=== PATIENT | female | born 1990 ===

== ENCOUNTER 2018-09-18 04:00 | Inpatient (IN) ==
[2018-09-18] MEDS ORDERED: Metoclopramide 10 MG/2 ML VIAL IVP PRN (04:21)
[2018-09-18] MEDS ORDERED: Naloxone 0.4 MG/ML INJ IVP PRN ×3 (04:21→15:43)
[2018-09-18] MEDS ORDERED: Famotidine 20 MG/2 ML VIAL IVP PRN (04:21)
[2018-09-18] MEDS ORDERED: *HR* Nalbuphine 10 MG/ML AMPUL IVP PRN (04:21)
[2018-09-18] MEDS ORDERED: miSOPROStol 25 MCG TABLET VG PRN (04:25)
[2018-09-18] MEDS ORDERED: Ringers Solution, Lactated 1,000 ML IVC SCH (04:30)
[2018-09-18 04:49] LABS: Basophils % 0.1 %; Eosinophils % 0.3 %; Hematocrit 37.6 % (35.3-44.9); Hemoglobin 12.6 g/dL (11.5-15.4); Immature Granulocytes % 0.6 % (0-4); Lymphocytes # 2.3 K/mcL (0.6-4.6); Lymphocytes % 20.5 %; Mean Corpuscular HGB Conc 33.5 g/dL (31.6-35.5); Mean Corpuscular Hemoglobin 28.6 pg (28.0-33.3); Mean Corpuscular Volume 85.5 fL (83.0-100.0); Mean Platelet Volume 13.8 fL (9.4-12.4); Monocytes # 0.9 K/mcL (0.0-1.3); Platelet Count 140 K/mcL (140-400); Red Cell Distribution Width 12.8 % (11.5-14.5); Segmented Neutrophils % 70.5 %
[2018-09-18 04:58] LABS: Amphetamine Screen,Urine Negative ng/mL (Cutoff=1000); Barbiturate Screen,Urine Negative ng/mL (Cutoff=200); Benzodiazepines Screen,Urine Negative ng/mL (Cutoff=200); Cannabinoid Screen,Urine Negative ng/mL (Cutoff = 50); Cocaine Screen,Urine Negative ng/mL (Cutoff= 300); Opiate Screen,Urine Negative ng/mL (Cutoff=300); Phencyclidine Screen,Urine Negative ng/mL (Cutoff=25)
[2018-09-18] MEDS ORDERED: Oxytocin 20 units/ LR 1000 mL 20 UNIT/1,000 ML BAG IVC SCH ×2 (05:30→15:43)
--- NOTE | 2018-09-18 07:57 | Anesthesia Evaluation PreOp ---
Addendum entered and electronically signed by Tonny Lauren CRNA 09/18/18 11:59: Non-reassuring FHTs developed after epidural placement prompting need for stat . Patient states that epidural is providing adequate pain relief so explained to patient that plan A for anesthetic management will be epidural, plan B GETA. Patient verbalizes understanding. Patient's ASA status should be corrected to III E for BMI > 40. Original Note: Date of Encounter: 09/18/18 Time of Encounter: 07:54 - Past History Planned Operation: JUJU Cardiac History: Denies any Significant Hx Pulmonary History: Former smoker, Smoking Cessation (quit at the end of 2016) HAND FABRIC CUTTER History: Denies Any Significant HX Other Medical History: Denies Any Significant HX Alcohol Use: none Drug use: none Medications and Allergies Allergy/AdvReac Type Severity Reaction Status Date / Time No Known Allergies Allergy Verified 09/18/18 05:20 - Meds/Allergy Pre-op Review Medications Reviewed: Yes Allergies Reviewed: Yes Beta Blockers on Current Med List: No Anesthesia Results - Labs 09/18/18 04:30 Anesthesia Exam 131/84, HR 69, RR 14 O2 Sat Height 1.7 m Height 1.7 m Weight 127.006 kg Weight 127.006 kg NPO (# of Hours): >8hrs Pain Scale: 4 Pain Scale Used: Numeric (1 - 10) - HEENT Pupil (Motor): Pupils equal Mallampati: II Teeth: Normal Oral Opening: Greater than 3 - HAND FABRIC CUTTER LOC: Oriented HAND FABRIC CUTTER Motor: Normal RUE, Normal LUE, Normal RLE, Normal LLE, Normal Face HAND FABRIC CUTTER Sensory: Normal: RUE, LUE, RLE, LLE, Face - Cardiac Rhythm: Regular Murmur: None - Pulmonary Breath Sounds: bilateral Clear Respiratory Effort: Symmetrical Anesthesia Assess/Plan ASA Score: 2 Modified [place] Scale for Level of Consciousness: Cooperative, oriented, and tranquil Anesthetic Plan: Regional Autologous Blood: No Monitoring Plan: Standard Monitors Recovery Plan: Other
[2018-09-18] MEDS ORDERED: Bupivacaine-MPF 0.25% 10 ML VIAL EP ONE (08:04)
[2018-09-18] MEDS ORDERED: *HR* FentaNYL (PF) 100 MCG/2 ML VIAL EP ONE (08:04)
[2018-09-18] MEDS ORDERED: Lidocaine -MPF 1% 5 ML AMPUL ONE (08:07)
[2018-09-18] MEDS ORDERED: Bupivacaine-MPF 0.25% 10 ML VIAL ONE (08:07)
[2018-09-18] MEDS ORDERED: *HR* FentaNYL (PF) 100 MCG/2 ML VIAL ONE (08:07)
[2018-09-18] MEDS ORDERED: Epidural Premix (fent/bupiv) 110 ML EP SCH (08:15)
--- NOTE | 2018-09-18 08:38 | OB/GYN History & Physical ---
Date of Encounter: 09/18/18 Time of Encounter: 08:36 Assessment and Plan (1) 40 weeks gestation of Current visit: Yes Status: Acute patient's pressures have been normal to mild, tox labs drawn as baseline, pitocin started for IOL, will AROM with advanced dilation, ok for epidural when she desires, anticipate History of Present Illness HPI: Ms. Valadez is a 27 year old female @ 40+5 weeks who presents to L&D for IOL. She does not report LOF, VB or ctxs, feels god FM, A+, GBS neg. Past Med Surg Social Fam HX - Past Medical History Medical history: no medical history Psychiatric history: no psych history - Past Surgical History Additional surgical history: mole removal - Social History Smoking Status: Former smoker Smokeless Tobacco Status: No Alcohol use: none Drug use: none - Family History Mother Adopted: No Family Member Ethnicity: Non- Living Status: Still Living Hx Family Cardiac Disorders: Yes Hx Family Respiratory Disorders: No Hx Family Cancer: No Hx Family GI Disorders: No Hx Family Genitourinary Disorders: No Hx Family Endocrine Disorder: No Hx Family Musculoskeletal Disorders: No Hx Family Neuromuscular Disorders: No Hx Family Neurologic Disorders: No Hx Family HEENT Disorders: No Hx Family Autoimmune Disorders: No Hx Family Reproductive Disorders: No Hx Family Psychosocial Disorders: No Hx Family Medical Disorders: Yes (graves disease) Obstetrical History - Pregnancies : 2 Para: 1 Medications and Allergies Allergy/AdvReac Type Severity Reaction Status Date / Time No Known Allergies Allergy Verified 09/18/18 05:20 Review of System OB All systems PM: reviewed and no additional remarkable complaints except as stated Exam - Constitutional Constitutional: well nourished - HEENT HEENT: PERRL - Neck Neck exam: full ROM - Cervix Dilation: 3 Results Result Diagrams: 09/18/18 04:30 Abnormal lab results WBC 11.3 K/mcL (4.3-11.1) H 09/18/18 04:30 MPV 13.8 fL (9.4-12.4) H 09/18/18 04:30 All other labs normal. - VTE Reasons for not Prescribing Prophylaxis: Treatment not Indicated - Low risk for VTE
[2018-09-18 09:24] LABS: Alanine Aminotransferase 6 Units/L (7-52); Aspartate Amino Transferase 9 Units/L (13-39); BUN/Creatinine Ratio 17 (6-26); Blood Urea Nitrogen 8 mg/dL (6-20); Lactate Dehydrogenase 121 Units/L (140-271); Uric Acid 4.4 mg/dL (2.3-7.6); eGFR For Non-African Americans > 60 (> 60)
[2018-09-18] MEDS ORDERED: *HR* Phenylephrine 10 MG/ML VIAL ONE (11:25)
--- NOTE | 2018-09-18 11:30 | Anesthesia Procedures ---
Date of Encounter: 09/18/18 Time of Encounter: 10:57 Procedures: Anesthesia - Epidural/Spinal Patient ID/Chart reviewed: Yes Patient examined: Yes OB Eval: Gestational age: 40 weeks 3 days OB Eval: : 2 OB Eval: Hx Para: 1 OB Eval: Contractions: Non-stressed pattern Consent Obtained: Yes Supplemental Oxygen: None/Room Air Site Prep: Aseptic Technique, Sterile prep and drape, Povidone-Iodine 1% Patient position: upright Local Anesthetic: Lidocaine 1% Amount of Local Anesthetic used: 3 Touhy Needle Gauge: 18 Touhy Needle Depth (cm): 8 Catheter Depth at Skin (cm): 13 Test Dose (1.5% Lido + Epi): Volume given (mls): 5 Test Dose Result: Negative Loading Dose: 0.25% Marcaine (mls): 5 Loading Dose: Fentanyl (mcg): 100 Loading Dose Administered: Thru Catheter Infusion Med: 0.125% Bupivacaine w/ 2 mcg/ml Fentanyl Infusion Rate (mls/hr): 14 (demand bolus of 5mL q30min PRN) Catheter Secured in Place: Tegaderm, Tape Interspace Used: L3-L4 Loss of Resistance (RANDAL): Yes Blood: No CSF: No Paresthesia: No Procedure: successful on 1st attempt Vitals + FHT's: mild hypotension; treated with phenylephrine
[2018-09-18] MEDS ORDERED: Ringers Solution, Lactated 1,000 ML ONE (11:40)
[2018-09-18] MEDS ORDERED: *HR* Oxytocin 10 UNIT/ML VIAL IM ONE (11:40)
--- NOTE | 2018-09-18 11:46 | Event Note ---
Date of Encounter: 09/18/18 Time of Encounter: 11:25 FHT audibly decreased from hallway. CNM entered room and found patient tilted to the right with 2 RN's at bedside. Advised to bring patient further on right side. IV bolus started and O2 applied per face mask. FHR remained in 70's. Patient moved to left lateral position and RN advised to call Dr. Yousif. Yana Mccracken CRNA at bedside. Patient then moved back to right lateral and FHR remains down. Patient moved to hands and knees and Dr. Yousif at bedside. Per Dr. Yousif, advised to continue resuscitation attempts for 2 more minutes equalling 10 minutes. Patient moved back to right lateral and FHR noted at 67. Advised nursing staff to move patient to OR.
[2018-09-18] MEDS ORDERED: Chloroprocaine/PF 20 ML VIAL INFILT ONE (11:52)
[2018-09-18] MEDS ORDERED: *HR* OxyCODONE Immed Rel 5 MG TABLET PO PRN (12:03)
[2018-09-18] MEDS ORDERED: *HR* HYDROmorphone 2 MG TABLET PO PRN (12:03)
[2018-09-18] MEDS ORDERED: Ondansetron 4 MG/2 ML VIAL IVP PRN ×2 (12:03→15:43)
[2018-09-18] MEDS ORDERED: *HR* Promethazine 25 MG/ML VIAL IVP PRN (12:03)
[2018-09-18] MEDS ORDERED: Acetaminophen IV 1,000 MG/100 ML INFUS..BTL IVPB ONE (12:03)
[2018-09-18] MEDS ORDERED: *HR* Morphine Sulfate/PF 10 MG/10 ML AMPUL ONE (12:06)
--- NOTE | 2018-09-18 12:42 | OB/GYN Procedure Note ---
Section - Date of procedure: 09/18/18 Preop diagnosis: category 3 FHT tracing ( bradycardia) Post-op diagnosis: same Procedure: section, primary low transverse Surgeon: Romulo Yousif Was there an support assistant present: Yes Supplier Relationship Director: Rosa Kyle Anesthesia Type: General section complications: none Disposition: L&D Recovery Room Specimens: Placenta, Cord gasses - Narrative Narrative: The patient was brought back to the operative suite emergently where the epidural anesthesia was found to be adequate. She was placed in the dorsal supine position and prepped and draped in sterile fashion with betadine. A Pfannenstiel skin incision was made with a blade and carried down through the subcutaneous tissues to the fascia, which was extended in the transverse fascia. The fascial incision was then dissected off the rectus muscles bluntly. The rectus muscles were in the midline allowing adequate entry into the abdomen with good visualization of the underlying bowels, uterus and bladder. The bladder blade was placed and a low transverse uterine incision was made with the blade and carried down through the layers of the uterus. The uterine incision was then extended digitally. My hand was placed inside the pelvis, and the entire was delivered atraumatically with gentle fundal pressure. The was passed to the awaiting nursing staff for additional care. The cord was doubly clamped and cut. The placenta was then manually extracted. The uterine incision was readily identified and closed in two layers, first one with running locking suture followed by a second imbricating layer of 0 Vicryl. The fascia was closed with 0- vicryl. The subcutaneous tissue was closed with 3- 0 vicryl. The skin was reapproximated with 4-0 vicryl in a standard fashion. The patient tolerated the procedure well and was taken to the recovery room in stable condition. weight 3560g, breech, APGARS 7/9.
--- NOTE | 2018-09-18 12:47 | Anesthesia Evaluation Post Op ---
Date of Encounter: 09/18/18 Time of Encounter: 12:45 - Vital Signs Vital Signs: 101/47, HR 58, SpO2 96%, RR 18, T97.2F - Lungs Lungs: Clear Ascult./Percussion - Airway Airway: Non-obstructed - Cardiovascular Regular Rate - Mental Status Mental Status: Alert & Oriented, Answers Appropriately - Pain Pain Scale: 0 Pain Scale used: Numeric (1 - 10) - Nausea Vomiting Nausea Vomiting: Not Present - Hydration Hydration: NPO, Joy catheter - Discharge PostOp Status: Transfer Patient to floor
[2018-09-18] MEDS ORDERED: Measles/Mumps/Rubella Vacc 0.5 ML VIAL SQ PRN (15:43)
[2018-09-18] MEDS ORDERED: *HR* HYDROcodone/Acet 5/325 mg TABLET PO PRN (15:43)
[2018-09-18] MEDS ORDERED: *HR* HYDROmorphone (PF) 1 MG/ML SYRINGE IVP PRN (15:43)
[2018-09-18] MEDS: Ibuprofen 600 MG TABLET PO PRN (23:08)
[2018-09-19 04:56] LABS: Basophils % 0.2 %; Eosinophils % 0.1 %; Hematocrit 32.3 % (35.3-44.9); Immature Granulocytes % 0.5 % (0-4); Lymphocytes # 1.6 K/mcL (0.6-4.6); Lymphocytes % 16.5 %; Mean Corpuscular HGB Conc 33.7 g/dL (31.6-35.5); Mean Corpuscular Hemoglobin 29.2 pg (28.0-33.3); Mean Corpuscular Volume 86.6 fL (83.0-100.0); Monocytes # 0.9 K/mcL (0.0-1.3); Monocytes % 9.5 %; Neutrophils # 7.2 K/mcL (1.6-8.9); Platelet Count 104 K/mcL (140-400); Red Blood Count 3.73 M/mcL (3.82-4.97); Red Cell Distribution Width 13.1 % (11.5-14.5); Segmented Neutrophils % 73.2 %
[2018-09-19 05:03] LABS: Hemoglobin 10.9 g/dL (11.5-15.4)
[2018-09-19] MEDS ORDERED: Ringers Solution, Lactated 1,000 ML IVC ONE (06:15)
[2018-09-19] MEDS: Ibuprofen 600 MG TABLET PO PRN ×2 (06:41→19:31)
[2018-09-19] MEDS: Prenatal Vit/FA 1 EACH TABLET PO SCH (08:57)
--- NOTE | 2018-09-19 10:14 | OB/GYN Progress Note ---
Date of Encounter: 09/19/18 Time of Encounter: 10:11 - Assessment and Plan (1) Status post delivery Current Visit: Yes Status: Acute Pt meeting POD#1 milestones. going well. Plan for discharge home tomorrow. (2) Patient is a currently breast-feeding mother Current Visit: Yes Status: Acute Subjective - Subjective Patient reports: appetite normal, voiding normally, pain well controlled, ambulating normally : doing well Objective - Vital Signs Latest vital signs: Vital Signs Temp Pulse Pulse Resp BP Pulse Ox 09/19/18 07:49 98.1 F 85 85 16 126/67 97 09/19/18 04:05 98.3 F 75 16 120/70 98 09/19/18 00:00 99.6 F 71 20 119/79 97 09/18/18 19:30 98.2 F 78 16 120/79 98 09/18/18 17:45 98.5 F 69 16 127/84 99 09/18/18 16:45 98.4 F 71 16 127/86 98 09/18/18 15:45 99.2 F 70 70 18 107/63 09/18/18 15:15 99.8 F H 68 68 18 124/78 09/18/18 14:46 70 18 Intake and Output 09/18/18 09/19/18 09/19/18 23:59 07:59 15:59 Intake Total 1000 / 1000 2200 / 2200 Output Total 475 / 475 Balance 1000 / 1000 1725 / 1725 Intake: IV Fluids 1000 / 1000 Lactated Ringers 1,000 ML @ 999 1000 / 1000 mls/hr IVC .Q1H1M ONE Rx#: [id number] Oral 1200 / 1200 Other 1000 / 1000 Output: Urine 300 / 300 Catheter 175 / 175 Other: Weight 125 kg - Exam Lungs: bilateral: normal Chest: Normal S1, Normal S2 Extremities: Present: normal, edema (mild bilaterally) Abdomen: Present: soft Incision: Present: dressed (dressing dry and intact) Uterus: Present: firm - Labs Labs: Laboratory Results - last 24 hr 09/19/18 04:39 WBC 9.8 RBC 3.73 L Hgb 10.9 L D Hct 32.3 L MCV 86.6 MCH 29.2 MCHC 33.7 RDW 13.1 Plt Count 104 L MPV 14.0 H Immature Gran % 0.5 Seg Neutrophils % 73.2 Lymphocytes % 16.5 Monocytes % 9.5 Eosinophils % 0.1 Basophils % 0.2 Neutrophils # 7.2 Lymphocytes # 1.6 Monocytes # 0.9 Eosinophils # 0.0 Basophils # 0.0
[2018-09-20 07:34] VITALS: BP 127/88
[2018-09-20] MEDS: Prenatal Vit/FA 1 EACH TABLET PO SCH (07:35)
[2018-09-20] MEDS: Ibuprofen 600 MG TABLET PO PRN (07:36)
--- NOTE | 2018-09-20 08:29 | Discharge Summary ---
Date of Encounter: 09/20/18 Time of Encounter: 08:26 - Discharge Diagnosis (1) Patient is a currently breast-feeding mother Priority: Secondary Status: Acute Comments: Community resources provided (2) Status post delivery Priority: Primary Status: Acute Comments: Feeling well Pain well controlled with by mouth pain meds Tolerating regular diet Voiding independently Lochia light Passing flatus, and has had BM Ambulating independently Vital signs stable Discharge home today - Discharge Medications Prescriptions: HYDROcodone/Acet 5/325 mg [[place] 5-325 mg] 1 tab PO Q6HR PRN 5 Days #20 tablet PRN Reason: Moderate Pain (4-6) Ibuprofen [Motrin] 600 mg PO Q6HR PRN #30 tablet PRN Reason: Cramping Docusate [Colace] 100 mg PO BID #30 capsule Home Medications: Acetaminophen [Tylenol] 500 mg PO Q6HR PRN tablet 09/20/18 [Rx] Docusate [Colace] 100 mg PO BID #30 capsule 09/20/18 [Rx] HYDROcodone/Acet 5/325 mg [[place] 5-325 mg] 1 tab PO Q6HR PRN 5 Days #20 tablet 09/20/18 [Rx] Ibuprofen [Motrin] 600 mg PO Q6HR PRN #30 tablet 09/20/18 [Rx] Vit/FA 1 each PO DAILY tablet 09/20/18 [Rx] Allergies/Adverse Reactions: Allergy/AdvReac Type Severity Reaction Status Date / Time No Known Allergies Allergy Verified 09/18/18 05:20 Data Procedures and tests throughout hospitalization: Laboratory Tests 09/18/18 09/18/18 09/18/18 04:30 04:30 04:30 WBC 11.3 H RBC 4.40 Hgb 12.6 Hct 37.6 MCV 85.5 MCH 28.6 MCHC 33.5 RDW 12.8 Plt Count 140 MPV 13.8 H Immature Gran % 0.6 Seg Neutrophils % 70.5 Lymphocytes % 20.5 Monocytes % 8.0 Eosinophils % 0.3 Basophils % 0.1 Neutrophils # 8.0 Lymphocytes # 2.3 Monocytes # 0.9 Eosinophils # 0.0 Basophils # 0.0 BUN 8 Creatinine 0.47 L Est GFR ( Amer) > 60 Est GFR (Non-Af Amer) > 60 BUN/Creatinine Ratio 17 Uric Acid 4.4 AST 9 L ALT 6 L Lactate Dehydrogenase 121 L Urine Opiates Screen Negative Ur Barbiturates Screen Negative Ur Phencyclidine Scrn Negative Ur Amphetamines Screen Negative U Benzodiazepines Scrn Negative Urine Cocaine Screen Negative U Marijuana (THC) Screen Negative Ur Drug Screen Interp See Below 09/19/18 04:39 WBC 9.8 RBC 3.73 L Hgb 10.9 L D Hct 32.3 L MCV 86.6 MCH 29.2 MCHC 33.7 RDW 13.1 Plt Count 104 L MPV 14.0 H Immature Gran % 0.5 Seg Neutrophils % 73.2 Lymphocytes % 16.5 Monocytes % 9.5 Eosinophils % 0.1 Basophils % 0.2 Neutrophils # 7.2 Lymphocytes # 1.6 Monocytes # 0.9 Eosinophils # 0.0 Basophils # 0.0 BUN Creatinine Est GFR ( Amer) Est GFR (Non-Af Amer) BUN/Creatinine Ratio Uric Acid AST ALT Lactate Dehydrogenase Urine Opiates Screen Ur Barbiturates Screen Ur Phencyclidine Scrn Ur Amphetamines Screen U Benzodiazepines Scrn Urine Cocaine Screen U Marijuana (THC) Screen Ur Drug Screen Interp - Impressions ITS Impressions KUB X-Ray 09/18/18 11:47 IMPRESSION: No evidence of retained surgical hardware. D/ / 09/18/2018 14:10:10 Jack Mcdermott MD / [email or web address] Interpreting Provider: Jack Mcdermott MD Date of admission: 09/18/18 04:14 Consults: 09/18/18 15:43 Consult to User Support Specialist [CONS] Routine Comment: Vaginal delivery, consult needed Discharging clinician: Kristy Bartlett Anticipated date of discharge: 09/20/18 - Patient Status Disposition: Home, Self-Care Condition: Good Functional capacity at discharge: independent ambulation Overall status at discharge: patient is progressing back to baseline - Discharge Instructions Follow Up With: Romulo Yousif MD [Partnered Physician] - - Diet and Activity Activity: increase activity as tolerated Diet: regular diet Hospital Course Procedures: s/p PLTCS Reason for admission: induction of labor, IUP at term Delivery: section Episiotomy: none Laceration: none Other procedures: none complications: none Discharge diagnosis: IUP at term delivered [place] baby: female Time Attestation: Total time spent providing and/or coordinating discharge services: Time Spent: Less than 30 minutes - VTE Reasons for not Prescribing Prophylaxis: Treatment not Indicated - Low risk for VTE Documentation of Mechanical Device: Intermittent pneumatic compression device Exam - Constitutional Vitals: Temp Pulse Resp BP Pulse Ox 98.4 F 79 16 127/88 98 09/20/18 07:33 09/20/18 07:33 09/20/18 07:33 09/20/18 07:33 09/20/18 07:33 General appearance IM: A&O X 3 - Respiratory Respiratory exam: Present: CTAB - Cardiovascular Cardiovascular exam IM: Present: RRR, +S1, +S2 - GI/Abdominal GI/Abdominal exam IM: normal bowel sounds, no peritoneal signs Incision: normal, dry, dressed - Rectal Rectal exam: deferred - Uterine Tone: Firm Uterus Position: 1 Finger Below Umbilicus, Midline - Extremities Exam Extremities exam IM: Present: normal capillary refill, normal inspection, radial pulses palpable and symmetrical - Neurological Exam Neurological exam: alert, CN II-XII intact, normal gait, oriented X3, reflexes normal, no focal deficits, strengths equal and symetr throughout - Psychiatric Additional comments: Patient reports history of anxiety and depression. Signs and symptoms of depression reviewed with patient and partner and both verbalize understanding of when to seek help. - Skin Additional comments: Breasts: Soft, nontender; nipples intact without erythema
== END 2018-09-20 15:10 | disposition home or self-care (01) | DRG 540 ==
LOC: 1NENULAB 04:14 → 1NENUOBS 17:09
PROVIDERS: ADMIT Student in an Organized Health Care Education/Training Program; ATTEND Student in an Organized Health Care Education/Training Program

== ENCOUNTER → 2020-02-14 18:40 | Observation (INO) ==
[2020-02-14 16:58] LABS: Basophils % 0.1 %; Eosinophils % 0.2 %; Hematocrit 38.2 % (35.3-44.9); Hemoglobin 12.4 g/dL (11.5-15.4); Immature Granulocytes % 0.6 % (0-4); Lymphocytes # 2.2 K/mcL (0.6-4.6); Lymphocytes % 15.8 %; Mean Corpuscular HGB Conc 32.5 g/dL (31.6-35.5); Mean Corpuscular Hemoglobin 28.1 pg (28.0-33.3); Mean Corpuscular Volume 86.6 fL (83.0-100.0); Mean Platelet Volume 13.3 fL (9.4-12.4); Monocytes % 7.3 %; Neutrophils # 10.6 K/mcL (1.6-8.9); Nucleated Red Blood Cells 0.1 /100 WBC (0); Platelet Count 192 K/mcL (140-400); Red Blood Count 4.41 M/mcL (3.82-4.97); Red Cell Distribution Width 12.6 % (11.5-14.5); White Blood Count 13.9 K/mcL (4.3-11.1)
[2020-02-14 17:14] LABS: Amphetamine Screen,Urine Negative ng/mL (Cutoff=1000); Barbiturate Screen,Urine Negative ng/mL (Cutoff=200); Benzodiazepines Screen,Urine Negative ng/mL (Cutoff=200); Cannabinoid Screen,Urine Negative ng/mL (Cutoff = 50); Cocaine Screen,Urine Negative ng/mL (Cutoff= 300); Opiate Screen,Urine Negative ng/mL (Cutoff=300); Phencyclidine Screen,Urine Negative ng/mL (Cutoff=25)
[2020-02-14 17:16] LABS: Alanine Aminotransferase 6 Units/L (7-52); Aspartate Amino Transferase 8 Units/L (13-39); BUN/Creatinine Ratio 11 (6-26); Blood Urea Nitrogen 4 mg/dL (6-20); Lactate Dehydrogenase 107 Units/L (140-271); Uric Acid 3.9 mg/dL (2.3-7.6); eGFR For African Americans > 60 (> 60); eGFR For Non-African Americans > 60 (> 60)
[2020-02-14 17:50] LABS: Protein/Creatinine Ratio,Urine 0.15 mg/mg (0.00-0.20)
[2020-02-14 18:09] LABS: Varicella Zoster IgG Antibody Positive
[2020-02-14 18:10] LABS: Rubella IgG Antibody POSITIVE (POSITIVE)
[2020-02-14 18:25] LABS: Hepatitis B Surface Antigen Nonreactive (Nonreactive)
[~2020-02-14 18:40] MED LIST: Acetaminophen/Butalbital/CaffeineTABLET PO PRN
[2020-02-14 18:54] LABS: HIV-1&2 Antibody & p24 Ag Nonreactive (Nonreactive)
== END | disposition home or self-care (01) ==
LOC: 1NENULAB
PROVIDERS: ADMIT Obstetrics & Gynecology; ATTEND Obstetrics & Gynecology

== ENCOUNTER 2020-04-16 14:55 | Inpatient (IN) ==
[2020-04-16 14:50] LABS: Amphetamine Screen,Urine Negative ng/mL (Cutoff=1000); Barbiturate Screen,Urine Negative ng/mL (Cutoff=200); Benzodiazepines Screen,Urine Negative ng/mL (Cutoff=200); Cannabinoid Screen,Urine Negative ng/mL (Cutoff = 50); Cocaine Screen,Urine Negative ng/mL (Cutoff= 300); Opiate Screen,Urine Negative ng/mL (Cutoff=300); Phencyclidine Screen,Urine Negative ng/mL (Cutoff=25)
[~2020-04-16 14:55] MED LIST changes: -Acetaminophen/Butalbital/CaffeineTABLET PO PRN; +Famotidine 20 MG/2 ML VIAL IVP PRN; +Metoclopramide 10 MG/2 ML VIAL IVP PRN; +Naloxone 0.4 MG/ML INJ IVP PRN
[2020-04-16] MEDS ORDERED: Penicillin G Potassium 5,000,000 UNIT in 0.9 % Sodium Chloride Mini Bag 100 ML IVPB ONE (15:06)
[2020-04-16] MEDS ORDERED: Oxytocin 20 units/ LR 1000 mL 20 UNIT/1,000 ML BAG IVC SCH (15:15)
[2020-04-16 15:33] LABS: Eosinophils % 0.3 %; Platelet Count 160 K/mcL (140-400); Red Cell Distribution Width 12.8 % (11.5-14.5)
[2020-04-16 15:35] LABS: Basophils % 0.3 %; Hematocrit 38.7 % (35.3-44.9); Hemoglobin 12.6 g/dL (11.5-15.4); Immature Granulocytes % 0.8 % (0-4); Immature Platelets 22.3 % (1.1-6.1); Lymphocytes # 2.4 K/mcL (0.6-4.6); Lymphocytes % 20.2 %; Mean Corpuscular HGB Conc 32.6 g/dL (31.6-35.5); Mean Corpuscular Hemoglobin 27.8 pg (28.0-33.3); Mean Corpuscular Volume 85.4 fL (83.0-100.0); Mean Platelet Volume 13.5 fL (9.4-12.4); Monocytes # 0.9 K/mcL (0.0-1.3); Monocytes % 7.7 %; Red Blood Count 4.53 M/mcL (3.82-4.97); Segmented Neutrophils % 70.7 %; White Blood Count 11.8 K/mcL (4.3-11.1)
[2020-04-16] MEDS: Ringers Solution, Lactated 1,000 ML IVC SCH ×2 (15:38→23:27)
[2020-04-16 16:04] LABS: Neutrophils # 8.3 K/mcL (1.6-8.9)
[2020-04-16 16:05] LABS: Large Platelets Present (Not Present)
[2020-04-16] MEDS ORDERED: Ropivacaine/PF 0.2% 20 ML VIAL EP ONE (16:29)
[2020-04-16] MEDS ORDERED: *HR* FentaNYL (PF) 100 MCG/2 ML VIAL EP ONE (16:29)
[2020-04-16] MEDS ORDERED: EPHEDrine 50 MG/ML VIAL IVP PRN (16:29)
[2020-04-16] MEDS ORDERED: Epidural Premix (fent/bupiv) 110 ML EP SCH (16:30)
[2020-04-16] MEDS: Penicillin G Potassium 2,500,000 UNIT/105 ML UNIT IVPB SCH ×2 (19:35→23:26)
[2020-04-17] MEDS ORDERED: *HR* FentaNYL (PF) 100 MCG/2 ML VIAL ONE ×2 (00:49→07:24)
[2020-04-17] MEDS ORDERED: Ropivacaine/PF 0.2% 20 ML VIAL ONE (00:49)
[2020-04-17] MEDS ORDERED: EPHEDrine 50 MG/ML VIAL ONE (01:41)
[2020-04-17] MEDS: Penicillin G Potassium 2,500,000 UNIT/105 ML UNIT IVPB SCH ×2 (04:06→08:41)
[2020-04-17] MEDS ORDERED: Sodium Bicarbonate 50 MEQ/50 ML VIAL ONE (07:23)
[2020-04-17] MEDS ORDERED: Lidocaine/EPI 1:200k 2% PF 20 ML VIAL ONE (07:23)
[2020-04-17] MEDS ORDERED: Epidural Premix (fent/bupiv) 110 ML EP SCH (08:12)
[2020-04-17] MEDS ORDERED: Measles/Mumps/Rubella Vacc 0.5 ML VIAL SQ PRN (12:27)
[2020-04-17] MEDS ORDERED: Ibuprofen 600 MG TABLET PO PRN (12:27)
[2020-04-17] MEDS ORDERED: Oxytocin 20 units/ LR 1000 mL 20 UNIT/1,000 ML BAG IVC SCH (12:27)
[2020-04-17] MEDS ORDERED: Rho Immune Globulin 1,500 UNIT SYRINGE IM PRN (12:27)
[2020-04-17] MEDS ORDERED: Oxytocin 20 units/ LR 1000 mL 20 UNIT/1,000 ML BAG IVC ONE (12:27)
[2020-04-17] MEDS ORDERED: Acetaminophen 325 MG TABLET PO PRN (12:27)
[2020-04-18 05:35] LABS: Immature Granulocytes % 0.8 % (0-4)
[2020-04-18 05:37] LABS: Basophils % 0.3 %; Eosinophils # 0.1 K/mcL (0.0-0.6); Eosinophils % 0.7 %; Hematocrit 35.6 % (35.3-44.9); Hemoglobin 11.4 g/dL (11.5-15.4); Lymphocytes # 3.7 K/mcL (0.6-4.6); Lymphocytes % 27.5 %; Mean Corpuscular Hemoglobin 27.9 pg (28.0-33.3); Mean Corpuscular Volume 87.3 fL (83.0-100.0); Mean Platelet Volume 13.9 fL (9.4-12.4); Monocytes # 1.4 K/mcL (0.0-1.3); Monocytes % 10.2 %; Neutrophils # 8.2 K/mcL (1.6-8.9); Platelet Count 143 K/mcL (140-400); Red Blood Count 4.08 M/mcL (3.82-4.97); Red Cell Distribution Width 13.1 % (11.5-14.5); Segmented Neutrophils % 60.5 %; White Blood Count 13.5 K/mcL (4.3-11.1)
[2020-04-18 08:32] VITALS: BP 118/79
[2020-04-18] MEDS ORDERED: Prenatal Vit/FA 1 EACH TABLET PO SCH (09:00)
[2020-04-18] MEDS ORDERED: FLUoxetine HCl 10 MG CAPSULE PO SCH (09:00)
== END 2020-04-18 12:15 | disposition home or self-care (01) | DRG 807 ==
LOC: 1NENULAB → 1NENUOBS 04-17 12:15
PROVIDERS: ADMIT Obstetrics & Gynecology; ATTEND Obstetrics & Gynecology